=== PATIENT | male | born 1965 | race Caucasian/White ===

== ENCOUNTER → 2016-08-29 | Outpatient (CLI) | payer OTHER ==
[~2016-08-29] MED LIST: CALC-449 PO; MAGN250T8 PO; MULT-923 PO; OMEG10007 PO
== END | disposition home or self-care (01) ==
LOC: C.RDSM 10:22
PROVIDERS: ATTEND Orthopaedic Surgery Sports Medicine
DX: M25.561 Pain in right knee (principal)